=== PATIENT | male | born 1990 | race Caucasian/White ===

== ENCOUNTER 2020-02-27 21:22 | Emergency (ER) | payer MEDICAID, SELFPAY ==
[~2020-02-27] VITALS: Ht 175.3 cm; Wt 91.2 kg
[2020-02-27 21:37] VITALS: Ht 175.3 cm; Wt 91.2 kg
[2020-02-27 22:40] VITALS: BP 142/91
== END 2020-02-27 22:40 | disposition home or self-care (01) ==
LOC: ED 21:22
DX: H66.92 Otitis media, unspecified, left ear (principal); Z20.828 Contact with and (suspected) exposure to other viral communicable diseases
CPT/HCPCS: U0003-CS

== ENCOUNTER 2020-03-02 21:49 | Emergency (ER) | payer MEDICAID ==
[~2020-03-02] VITALS: Ht 175.3 cm; Wt 92.5 kg
[2020-03-02 22:01] VITALS: Ht 175.3 cm; Wt 92.5 kg
[2020-03-02 23:01] VITALS: BP 140/95
== END 2020-03-02 23:01 | disposition home or self-care (01) ==
LOC: ED 21:49
DX: H66.92 Otitis media, unspecified, left ear (principal)

== ENCOUNTER 2020-03-14 22:50 | Emergency (ER) | payer MEDICAID ==
[~2020-03-14] VITALS: Ht 175.3 cm; Wt 90.9 kg
[2020-03-14 22:58] VITALS: Ht 175.3 cm; Wt 90.9 kg
[2020-03-14 23:59] VITALS: BP 151/99
== END 2020-03-14 23:59 | disposition home or self-care (01) ==
LOC: ED 22:50
DX: J32.9 Chronic sinusitis, unspecified (principal); H93.292 Other abnormal auditory perceptions, left ear; J45.909 Unspecified asthma, uncomplicated

== ENCOUNTER 2020-05-08 23:35 | Emergency (ER) | payer MEDICAID, SELFPAY ==
[~2020-05-08] VITALS: Ht 175.3 cm; Wt 97.5 kg
[2020-05-08 23:37] VITALS: BP 155/103; Ht 175.3 cm; Wt 97.5 kg
== END 2020-05-09 | disposition home or self-care (01) ==
LOC: ED 23:35
DX: M79.10 Myalgia, unspecified site (principal); J02.9 Acute pharyngitis, unspecified; J45.909 Unspecified asthma, uncomplicated; Z20.828 Contact with and (suspected) exposure to other viral communicable diseases
CPT/HCPCS: U0003